=== PATIENT | female | born 1965 | race Caucasian/White ===

== ENCOUNTER 2021-03-20 10:54 | Inpatient (IN) | payer BC ==
[2021-03-20 13:23] VITALS: BMI 32.5
[2021-03-20] MEDS ORDERED: Aspirin 325 mg Enteric Coated Tablet PO SCH (14:45)
[2021-03-20] MEDS ORDERED: Communication Order-Pharmacy FS SCH (15:15)
[2021-03-20 15:38] LABS: Troponin I 0.352 ng/mL (< 0.028)
[2021-03-20] MEDS: Acetaminophen 325 MG TAB PO PRN (17:38)
[2021-03-20 19:04] LABS: Troponin I 0.471 ng/mL (< 0.028)
[2021-03-20] MEDS: Fioricet 325/50/40 mg Tablet PO PRN (19:57)
[2021-03-20] MEDS: Enoxaparin Sodium 100 MG/ML SYRINGE SC SCH (19:58)
[2021-03-20] MEDS: Losartan 25 MG TAB PO SCH (19:58)
[2021-03-20] MEDS ORDERED: Fioricet 325/50/40 mg Tablet PO PRN (20:34)
[2021-03-20] MEDS: Meloxicam 7.5 MG TAB PO SCH (20:40)
[2021-03-20] MEDS: clonazePAM 0.5 MG TAB PO SCH (20:40)
[2021-03-20] MEDS: cloNIDine 0.2 MG TAB PO SCH (20:40)
[2021-03-20 23:22] LABS: SARS-CoV-2 PCR by NAA Not Detected (NotDetected)
[2021-03-21] MEDS: Nitroglycerin 2% Ointment 1 INCH/1 GM Packet TOP SCH ×4 (01:27→20:19)
[2021-03-21 06:15] LABS: Anion Gap 11 mmol/L (10-20); BUN (Urea Nitrogen) 19 mg/dL (9.8-20.1); Calc. Creatinine Clearance 107 mL/min (70-130); Calcium 9.3 mg/dL (7.8-10.44); Carbon Dioxide 24 mmol/L (22-29); Cardiac Risk 5.6 (Less than 4.5); Chloride 106 mmol/L (98-107); Cholesterol 235 mg/dl (< 200 Desired); Glucose 95 mg/dL (70-105); HDL Cholesterol 42 mg/dL (>60 Neg Risk); LDL Cholesterol, Calculated 144 mg/dL; Potassium 4.1 mmol/L (3.5-5.1); Sodium 137 mmol/L (136-145); Triglycerides 243 mg/dL (Less than 150)
[2021-03-21 06:52] LABS: Mean Corpuscular Hemoglobin 31.2 pg (27.0-31.0); Mean Corpuscular Volume 89.1 fL (78.0-98.0); Mean Platelet Volume 7.9 fL (7.4-10.4); Platelet Count 218 thou/uL (130-400); RBC Distribution Width 11.9 % (11.5-14.5); Red Blood Cell (RBC) Count 4.17 mill/uL (4.20-5.40); White Blood Cell (WBC) Count 7.7 thou/uL (4.8-10.8)
[2021-03-21 07:35] LABS: Eosinophils 2 % (0-10); Lymphocytes 53 % (21-51); MDiff Complete? YES; Monocytes 3 % (0-10); Neutrophil 40 % (42-75); Platelet Morphology Comment Appears Adequate; RBC Morphology Normal; Reactive Lymphocytes 1 % (0-10)
[2021-03-21] MEDS ORDERED: Enoxaparin Sodium 40 MG/0.4 ML SYRINGE SC SCH (09:00)
[2021-03-21] MEDS: Aspirin 325 mg Enteric Coated Tablet PO SCH (10:19)
[2021-03-21] MEDS: Meloxicam 7.5 MG TAB PO SCH ×2 (10:19→20:17)
[2021-03-21] MEDS: Losartan 25 MG TAB PO SCH ×2 (10:20→20:19)
[2021-03-21] MEDS: Enoxaparin Sodium 100 MG/ML SYRINGE SC SCH ×2 (10:21→20:19)
[2021-03-21] MEDS: clonazePAM 0.5 MG TAB PO SCH (20:17)
[2021-03-21] MEDS: cloNIDine 0.2 MG TAB PO SCH (20:18)
[2021-03-22] MEDS: Nitroglycerin 2% Ointment 1 INCH/1 GM Packet TOP SCH ×3 (05:43→21:16)
[2021-03-22] MEDS ORDERED: Communication Order-Pharmacy FS SCH (07:30)
[2021-03-22] MEDS ORDERED: Sodium Chloride 0.9% 1,000 ML IV SCH (07:30)
[2021-03-22 07:56] LABS: Anion Gap 11 mmol/L (10-20); BUN (Urea Nitrogen) 19 mg/dL (9.8-20.1); Calc. Creatinine Clearance 108 mL/min (70-130); Calcium 9.5 mg/dL (7.8-10.44); Carbon Dioxide 27 mmol/L (22-29); Chloride 104 mmol/L (98-107); Glucose 97 mg/dL (70-105); Potassium 3.9 mmol/L (3.5-5.1); Sodium 138 mmol/L (136-145)
[2021-03-22] MEDS: Meloxicam 7.5 MG TAB PO SCH ×2 (09:11→21:05)
[2021-03-22] MEDS: Enoxaparin Sodium 100 MG/ML SYRINGE SC SCH ×2 (09:12→21:06)
[2021-03-22] MEDS: Aspirin 325 mg Enteric Coated Tablet PO SCH (09:12)
[2021-03-22] MEDS: Losartan 25 MG TAB PO SCH ×2 (09:12→21:04)
[2021-03-22] MEDS: Ondansetron ODT 4 MG TAB PO PRN (21:02)
[2021-03-22] MEDS: clonazePAM 0.5 MG TAB PO SCH (21:04)
[2021-03-22] MEDS: cloNIDine 0.2 MG TAB PO SCH (21:04)
[2021-03-23] MEDS ORDERED: Sodium Chloride 0.9% 1,000 ML IV SCH ×2 (00:01→06:00)
[2021-03-23] MEDS: Nitroglycerin 2% Ointment 1 INCH/1 GM Packet TOP SCH ×3 (05:41→19:41)
[2021-03-23 05:42] LABS: #Basophils 0.1 thou/uL (0.0-0.2); #Eosinphils 0.1 thou/uL (0.0-0.7); #Lymphocytes 3.4 thou/uL (1.20-3.40); #Monocytes 0.4 thou/uL (0.11-0.59); #Neutrophils 3.7 thou/uL (1.40-6.50); %Basophils 0.9 % (0.0-1.0); %Eosinophils 1.5 % (0.0-10.0); %Lymphocytes 44.5 % (21.0-51.0); %Monocytes 5.6 % (0.0-10.0); %Neutrophils 47.5 % (42.0-75.0); Hemoglobin 13.7 g/dL (12.0-16.0); Mean Corpuscular HGB CONC 34.2 g/dL (32.0-36.0); Mean Corpuscular Volume 90.6 fL (78.0-98.0); Mean Platelet Volume 7.6 fL (7.4-10.4); Platelet Count 218 thou/uL (130-400); RBC Distribution Width 11.9 % (11.5-14.5); White Blood Cell (WBC) Count 7.7 thou/uL (4.8-10.8)
[2021-03-23] MEDS: Losartan 25 MG TAB PO SCH ×2 (05:48→19:39)
[2021-03-23] MEDS: Meloxicam 7.5 MG TAB PO SCH (05:48)
[2021-03-23] MEDS: Aspirin 325 mg Enteric Coated Tablet PO SCH (05:48)
[2021-03-23 06:01] LABS: Anion Gap 12 mmol/L (10-20); BUN (Urea Nitrogen) 18 mg/dL (9.8-20.1); Calc. Creatinine Clearance 120 mL/min (70-130); Carbon Dioxide 24 mmol/L (22-29); Chloride 104 mmol/L (98-107); Glucose 97 mg/dL (70-105); Potassium 3.9 mmol/L (3.5-5.1); Sodium 136 mmol/L (136-145)
[2021-03-23] MEDS ORDERED: Lidocaine 1% (PF) 30 ML VIAL ONE (06:35)
[2021-03-23] MEDS ORDERED: Verapamil 5 MG/2 ML VIAL ONE (06:35)
[2021-03-23] MEDS ORDERED: Heparin 10,000 UNITS/ 10 ML VIAL ONE (06:35)
[2021-03-23] MEDS ORDERED: Nitroglycerin 100MG/250ML BOT 250 ML ONE (06:36)
[2021-03-23] MEDS ORDERED: Midazolam HCl 2 mg/2 ml Vial ONE (07:22)
[2021-03-23] MEDS ORDERED: Fentanyl 100 MCG/2 ML VIAL ONE (07:23)
[2021-03-23] MEDS ORDERED: Sodium Chloride 0.9% 200 ML IV PRN (08:25)
[2021-03-23] MEDS ORDERED: Nitroglycerin 0.4 MG TAB (25 Tab Bottle) SL PRN (08:25)
[2021-03-23] MEDS ORDERED: Sodium Chloride 0.9% 500 ML IV SCH (08:30)
[2021-03-23] MEDS: Acetaminophen 325 MG TAB PO PRN (10:56)
[2021-03-23] MEDS ORDERED: Fentanyl 100 MCG/2 ML VIAL SLOW IVP SCH ×2 (11:30→11:45)
[2021-03-23] MEDS ORDERED: Communication Order-Pharmacy FS PRN (17:20)
[2021-03-23] MEDS ORDERED: Diazepam 5 MG TAB PO PRN (17:20)
[2021-03-23] MEDS ORDERED: CEFAZOLIN 2 GM, Admixture Fee 1 EACH in Sodium Chloride 0.9% 100 ML IVPB SCH (18:30)
[2021-03-23] MEDS: Ondansetron ODT 4 MG TAB PO PRN (18:43)
[2021-03-23] MEDS ORDERED: Ondansetron PF 4 MG/2 ML Vial IVP PRN (18:50)
[2021-03-23] MEDS: Fioricet 325/50/40 mg Tablet PO PRN (19:36)
[2021-03-23] MEDS: Atorvastatin Calcium 40 MG TAB PO SCH (19:39)
[2021-03-23] MEDS: cloNIDine 0.2 MG TAB PO SCH (19:39)
[2021-03-23] MEDS: clonazePAM 0.5 MG TAB PO SCH (19:39)
[2021-03-23] MEDS ORDERED: Promethazine HCl 25 MG/ML VIAL IM SCH (20:30)
[2021-03-24] MEDS: Acetaminophen 325 MG TAB PO PRN (03:59)
[2021-03-24] MEDS: Fioricet 325/50/40 mg Tablet PO PRN (04:00)
[2021-03-24] MEDS: Nitroglycerin 2% Ointment 1 INCH/1 GM Packet TOP SCH ×3 (05:36→21:27)
[2021-03-24] MEDS ORDERED: Fioricet 325/50/40 mg Tablet PO PRN (09:21)
[2021-03-24] MEDS: Promethazine 25 MG TAB PO PRN ×2 (09:29→19:57)
[2021-03-24] MEDS: Losartan 25 MG TAB PO SCH ×2 (10:19→21:26)
[2021-03-24] MEDS: Aspirin 325 mg Enteric Coated Tablet PO SCH (10:19)
[2021-03-24] MEDS ORDERED: Mineral Oil ENEMA PR SCH (21:00)
[2021-03-24] MEDS ORDERED: Docusate 100 MG CAP PO SCH (21:00)
[2021-03-24] MEDS: cloNIDine 0.2 MG TAB PO SCH (21:25)
[2021-03-24] MEDS: clonazePAM 0.5 MG TAB PO SCH (21:26)
[2021-03-24] MEDS: Atorvastatin Calcium 40 MG TAB PO SCH (21:26)
[2021-03-25] MEDS: Losartan 25 MG TAB PO SCH (06:10)
[2021-03-25] MEDS: Nitroglycerin 2% Ointment 1 INCH/1 GM Packet TOP SCH (06:11)
[2021-03-25] MEDS ORDERED: Bupivacaine PF 0.5% 30 ML VIAL ONE (06:30)
[2021-03-25] MEDS ORDERED: Albumin 5% 500 ML ONE (06:30)
[2021-03-25] MEDS ORDERED: Dexamethasone 4 mg/ml Vial ONE (06:30)
[2021-03-25] MEDS ORDERED: EPINEPHrine 1 MG/ML AMP ONE (06:30)
[2021-03-25] MEDS ORDERED: Fentanyl 250 MCG/5 ML VIAL ONE (08:44)
[2021-03-25] MEDS ORDERED: Midazolam HCl 5 mg/5 ml Vial ONE (08:44)
[2021-03-25] MEDS ORDERED: Lidocaine 1% PF 5 ML VIAL ONE ×2 (08:52→09:09)
[2021-03-25] MEDS ORDERED: Thrombin 5000 UNITS/5 ML VIAL ONE (09:09)
[2021-03-25] MEDS ORDERED: Cardioplegic Soln 1,000 ML BAG ONE (09:09)
[2021-03-25] MEDS ORDERED: Protamine Sulfate 250 MG/25 ML VIAL ONE (09:09)
[2021-03-25] MEDS ORDERED: Calcium Chloride 1 GM/10 ML Abboject SYRINGE ONE (09:09)
[2021-03-25] MEDS ORDERED: Heparin 30,000 units/30 ml VIAL ONE (09:09)
[2021-03-25] MEDS ORDERED: Heparin 5,000 UNITS/ML VIAL ONE (09:09)
[2021-03-25] MEDS ORDERED: Papaverine 60 MG/2 ML VIAL ONE (09:09)
[2021-03-25] MEDS ORDERED: Lidocaine 2% PF 100 mg/5 ml Syringe ONE (09:09)
[2021-03-25] MEDS ORDERED: Magnesium Sulfate 1 GM/2 ML VIAL ONE (09:09)
[2021-03-25] MEDS ORDERED: PROPOFOL 200 MG/20 ML VIAL ONE (09:09)
[2021-03-25] MEDS ORDERED: Mannitol 12.5 GM/50 ML ONE (09:09)
[2021-03-25] MEDS ORDERED: Potassium Chloride 60 MEQ/30 ML VIAL ONE (09:09)
[2021-03-25] MEDS ORDERED: PHENYLEPHRINE-NS 100 MCG/ML 10 ML SYRINGE ONE ×2 (09:09→10:53)
[2021-03-25] MEDS ORDERED: Sodium Bicarb 50 MEQ/50 ML Abboject 8.4% SYRINGE ONE (09:09)
[2021-03-25] MEDS ORDERED: Rocuronium Bromide 10 MG/ML (10ML VIAL) ONE (09:09)
[2021-03-25] MEDS ORDERED: Aminocaproic Acid 5 GM/20 ML VIAL ONE (09:09)
[2021-03-25] MEDS ORDERED: niCARdipine 25 MG in Sodium Chloride 0.9% 250 ML 250 ML IVPB PRN (12:46)
[2021-03-25] MEDS ORDERED: Bisacodyl 5 MG TAB PO PRN (12:46)
[2021-03-25] MEDS ORDERED: traMADol HCl 50 MG TAB PO PRN ×2 (12:46)
[2021-03-25] MEDS ORDERED: Hetastarch 6% 500 ML 500 ML IVPB PRN (12:46)
[2021-03-25] MEDS ORDERED: Magnesium 2 GM/50 ML 2 GM in Premix Bag 1 BAG IVPB SCH (12:46)
[2021-03-25] MEDS ORDERED: Fentanyl 100 MCG/2 ML VIAL SLOW IVP PRN (12:46)
[2021-03-25] MEDS ORDERED: Promethazine HCl 25 MG/ML VIAL IM PRN (12:46)
[2021-03-25] MEDS ORDERED: Guaifenesin DM 100-10/5 ML UDCUP PO PRN (12:46)
[2021-03-25] MEDS ORDERED: Mag-Al 1200 mg/1200 mg/30 ML UDCUP PO PRN (12:46)
[2021-03-25] MEDS ORDERED: Acetaminophen 325 MG TAB PO PRN (12:46)
[2021-03-25] MEDS ORDERED: Bisacodyl 10 MG SUPP PR PRN (12:46)
[2021-03-25] MEDS ORDERED: Nitroglycerin 50 MG/250 ML BOT 250 ML IVPB PRN (12:46)
[2021-03-25] MEDS ORDERED: Norepinephrine 8 MG/0.9% NS 250 ML IVPB PRN (12:46)
[2021-03-25] MEDS ORDERED: HUMULIN R 100 UNITS in Sodium Chloride 0.9% 100 ML IVPB SCH (13:00)
[2021-03-25] MEDS ORDERED: Lantus 1000 UNITS/10 ML VIAL SC PRN (13:00)
[2021-03-25] MEDS ORDERED: Dextrose 5% in Water 1,000 ML IV PRN (13:00)
[2021-03-25] MEDS ORDERED: Dextrose 50% Abboject 50 ML SYRINGE SLOW IVP PRN (13:00)
[2021-03-25] MEDS ORDERED: Insulin Regular 300 UNITS/3 ML VIAL SC PRN (13:00)
[2021-03-25] MEDS ORDERED: Fentanyl 100 MCG/2 ML VIAL ONE ×2 (13:03)
[2021-03-25 13:11] LABS: Actual Bicarbonate (HCO3a) 22.1 mEq/L (22-28); Base Excess (BEa) -3.2 mEq/L (-2.0 to +3.0); CO2 Tension 40.6 mmHg (35.0-45.0); Calcium, Ionized (arterial) 1.15 mmol/L (1.12-1.30); Carboxyhemoglobin (COHb) 0.4 gm% (0.0-3.0); Hemoglobin (Hb) 11.2 g/dL (12.0-16.0); O2 Tension (PaO2), arterial 75.3 mmHg (80.0-100.0); Potassium - ABG Lab 3.55 mmol/L (3.70-5.30); pH, Arterial 7.35 (7.35-7.45)
[2021-03-25 13:12] LABS: Puncture Site Arterial Line
[2021-03-25 13:20] LABS: #Eosinphils 0.1 thou/uL (0.0-0.7); #Lymphocytes 2.8 thou/uL (1.20-3.40); #Monocytes 1.4 thou/uL (0.11-0.59); #Neutrophils 14.7 thou/uL (1.40-6.50); %Basophils 0.1 % (0.0-1.0); %Eosinophils 0.5 % (0.0-10.0); %Lymphocytes 14.6 % (21.0-51.0); %Monocytes 7.1 % (0.0-10.0); %Neutrophils 77.6 % (42.0-75.0); Hemoglobin 10.6 g/dL (12.0-16.0); Mean Corpuscular HGB CONC 33.2 g/dL (32.0-36.0); Mean Corpuscular Volume 93.4 fL (78.0-98.0); Mean Platelet Volume 7.4 fL (7.4-10.4); Platelet Count 137 thou/uL (130-400); RBC Distribution Width 12.1 % (11.5-14.5); Red Blood Cell (RBC) Count 3.44 mill/uL (4.20-5.40); White Blood Cell (WBC) Count 18.9 thou/uL (4.8-10.8)
[2021-03-25] MEDS: D5 1/2 NS w/20 mEq KCL 1,000 ML IV SCH (13:28)
[2021-03-25 13:31] LABS: INR-International Normal Ratio 1.3; Prothrombin Time 16.3 sec (12.0-14.7)
[2021-03-25 13:32] LABS: PTT 26.5 sec (22.9-36.1)
[2021-03-25 13:44] LABS: Anion Gap 12 mmol/L (10-20); BUN (Urea Nitrogen) 12 mg/dL (9.8-20.1); Calc. Creatinine Clearance 125 mL/min (70-130); Calcium 7.9 mg/dL (7.8-10.44); Carbon Dioxide 20 mmol/L (22-29); Chloride 111 mmol/L (98-107); Glucose 158 mg/dL (70-105); Potassium 3.6 mmol/L (3.5-5.1); Sodium 139 mmol/L (136-145)
[2021-03-25] MEDS: Potassium Chloride 20 MEQ/100 ML PREMIX BAG IVPB PRN (14:11)
[2021-03-25 14:17] LABS: Actual Bicarbonate (HCO3a) 21.8 mEq/L (22-28); Base Excess (BEa) -2.7 mEq/L (-2.0 to +3.0); CO2 Tension 36.7 mmHg (35.0-45.0); Calcium, Ionized (arterial) 1.12 mmol/L (1.12-1.30); Carboxyhemoglobin (COHb) 0.4 gm% (0.0-3.0); Hemoglobin (Hb) 12.1 g/dL (12.0-16.0); O2 Tension (PaO2), arterial 85.4 mmHg (80.0-100.0); Potassium - ABG Lab 3.56 mmol/L (3.70-5.30); Puncture Site Arterial Line; pH, Arterial 7.39 (7.35-7.45)
[2021-03-25 14:18] LABS: ALV-art Gradient 153.925 mmHg (0-20)
[2021-03-25] MEDS ORDERED: Albumin 5% 250 ML ONE (14:32)
[2021-03-25] MEDS: Ondansetron PF 4 MG/2 ML Vial IVP PRN (15:54)
[2021-03-25] MEDS: Fentanyl 100 MCG/2 ML VIAL SLOW IVP PRN ×2 (15:54→20:42)
[2021-03-25] MEDS: CEFAZOLIN 2 GM, Admixture Fee 1 EACH in Sodium Chloride 0.9% 100 ML IVPB SCH (15:55)
[2021-03-25] MEDS: Ketorolac Tromethamine 30 MG/ML VIAL IVP SCH (17:16)
[2021-03-25 18:14] LABS: Hemoglobin 10.5 g/dL (12.0-16.0)
[2021-03-25 18:51] LABS: Potassium 4.2 mmol/L (3.5-5.1)
[2021-03-25] MEDS: Atorvastatin Calcium 40 MG TAB PO SCH (20:00)
[2021-03-25] MEDS ORDERED: Famotidine/PF 20 mg/2ml Vial SLOW IVP SCH (21:00)
[2021-03-26] MEDS: Ketorolac Tromethamine 30 MG/ML VIAL IVP SCH ×4 (00:05→17:31)
[2021-03-26] MEDS: CEFAZOLIN 2 GM, Admixture Fee 1 EACH in Sodium Chloride 0.9% 100 ML IVPB SCH (00:05)
[2021-03-26 04:17] LABS: #Basophils 0.1 thou/uL (0.0-0.2); #Lymphocytes 2.1 thou/uL (1.20-3.40); #Monocytes 1.3 thou/uL (0.11-0.59); #Neutrophils 9.5 thou/uL (1.40-6.50); %Basophils 0.5 % (0.0-1.0); %Eosinophils 0.3 % (0.0-10.0); %Lymphocytes 16.4 % (21.0-51.0); %Monocytes 9.7 % (0.0-10.0); %Neutrophils 73.2 % (42.0-75.0); Hemoglobin 9.8 g/dL (12.0-16.0); Mean Corpuscular HGB CONC 33.4 g/dL (32.0-36.0); Mean Corpuscular Hemoglobin 31.1 pg (27.0-31.0); Mean Corpuscular Volume 93.1 fL (78.0-98.0); Mean Platelet Volume 7.7 fL (7.4-10.4); Platelet Count 171 thou/uL (130-400); RBC Distribution Width 12.3 % (11.5-14.5); Red Blood Cell (RBC) Count 3.14 mill/uL (4.20-5.40)
[2021-03-26 04:38] LABS: Anion Gap 9 mmol/L (10-20); BUN (Urea Nitrogen) 13 mg/dL (9.8-20.1); Calc. Creatinine Clearance 120 mL/min (70-130); Calcium 7.8 mg/dL (7.8-10.44); Carbon Dioxide 25 mmol/L (22-29); Chloride 106 mmol/L (98-107); Glucose 98 mg/dL (70-105); Potassium 3.8 mmol/L (3.5-5.1); Sodium 136 mmol/L (136-145)
[2021-03-26] MEDS ORDERED: Ketorolac Tromethamine 30 MG/ML VIAL ONE ×2 (06:16→11:22)
[2021-03-26] MEDS ORDERED: ceFAZolin Sodium/D5W 2 GM in Premix Bag 1 BAG IVPB SCH (08:00)
[2021-03-26] MEDS: Magnesium 2 GM/50 ML 2 GM in Premix Bag 1 BAG IVPB SCH (08:06)
[2021-03-26] MEDS: Aspirin 325 MG TAB PO SCH (08:08)
[2021-03-26] MEDS ORDERED: Potassium Chloride 20 MEQ/100 ML PREMIX BAG ONE (08:25)
[2021-03-26] MEDS: Potassium Chloride 20 MEQ/100 ML PREMIX BAG IVPB PRN (08:25)
[2021-03-26] MEDS: D5 1/2 NS w/20 mEq KCL 1,000 ML IV SCH (11:25)
[2021-03-26] MEDS: Fioricet 325/50/40 mg Tablet PO PRN ×2 (15:01→22:18)
[2021-03-26] MEDS: HYDROcodone/Acetaminophen 5/325 mg Tablet PO PRN ×2 (15:47→20:11)
[2021-03-26] MEDS: Atorvastatin Calcium 40 MG TAB PO SCH (20:54)
[2021-03-26] MEDS ORDERED: Metoprolol Tartrate 25 MG TAB PO SCH (21:00)
[2021-03-27] MEDS: Ketorolac Tromethamine 30 MG/ML VIAL IVP SCH ×5 (00:19→23:42)
[2021-03-27] MEDS: HYDROcodone/Acetaminophen 5/325 mg Tablet PO PRN ×3 (03:35→14:22)
[2021-03-27] MEDS ORDERED: Guaifenesin DM 100-10/5 ML UDCUP PO PRN (07:38)
[2021-03-27] MEDS ORDERED: Milk Of Magnesia 30 ML UDCUP PO PRN (07:38)
[2021-03-27] MEDS ORDERED: Zolpidem Tartrate 5 MG TAB PO PRN (07:38)
[2021-03-27] MEDS ORDERED: Mineral Oil ENEMA PR PRN (07:38)
[2021-03-27] MEDS ORDERED: Bisacodyl 10 MG SUPP PR PRN (07:38)
[2021-03-27] MEDS ORDERED: Mag-Al 1200 mg/1200 mg/30 ML UDCUP PO PRN (07:38)
[2021-03-27] MEDS ORDERED: Bisacodyl 5 MG TAB PO PRN (07:38)
[2021-03-27] MEDS ORDERED: Nitroglycerin 0.4 MG TAB (25 Tab Bottle) SL PRN (07:38)
[2021-03-27] MEDS: Magnesium 2 GM/50 ML 2 GM in Premix Bag 1 BAG IVPB SCH (09:04)
[2021-03-27] MEDS: Furosemide 40 MG TAB PO SCH (09:04)
[2021-03-27] MEDS: Potassium Chloride 10 MEQ TAB PO SCH (09:04)
[2021-03-27] MEDS: Aspirin 325 MG TAB PO SCH (09:04)
[2021-03-27] MEDS: Metoprolol Tartrate 25 MG TAB PO SCH ×2 (09:04→21:09)
[2021-03-27] MEDS: Ondansetron PF 4 MG/2 ML Vial IVP PRN (09:14)
[2021-03-27] MEDS: Fioricet 325/50/40 mg Tablet PO PRN ×2 (12:53→20:04)
[2021-03-27] MEDS: Atorvastatin Calcium 40 MG TAB PO SCH (21:09)
[2021-03-28] MEDS: HYDROcodone/Acetaminophen 5/325 mg Tablet PO PRN ×4 (03:01→21:20)
[2021-03-28] MEDS: Ketorolac Tromethamine 30 MG/ML VIAL IVP SCH ×3 (05:30→16:52)
[2021-03-28] MEDS: Aspirin 325 MG TAB PO SCH (09:13)
[2021-03-28] MEDS: Potassium Chloride 10 MEQ TAB PO SCH (09:13)
[2021-03-28] MEDS: Furosemide 40 MG TAB PO SCH (09:14)
[2021-03-28] MEDS: Metoprolol Tartrate 25 MG TAB PO SCH ×2 (09:14→21:15)
[2021-03-28] MEDS ORDERED: Furosemide 40 MG/4 ML VIAL SLOW IVP SCH (09:30)
[2021-03-28] MEDS: Atorvastatin Calcium 40 MG TAB PO SCH (21:15)
[2021-03-29] MEDS: HYDROcodone/Acetaminophen 5/325 mg Tablet PO PRN ×5 (01:06→22:28)
[2021-03-29] MEDS: Aspirin 325 MG TAB PO SCH (09:06)
[2021-03-29] MEDS: Metoprolol Tartrate 25 MG TAB PO SCH ×2 (09:06→21:12)
[2021-03-29] MEDS: Furosemide 40 MG TAB PO SCH (09:07)
[2021-03-29] MEDS: Potassium Chloride 10 MEQ TAB PO SCH (09:07)
[2021-03-29] MEDS ORDERED: Furosemide 20 MG/2 ML VIAL SLOW IVP SCH (11:00)
[2021-03-29 14:08] LABS: SARS-CoV-2 PCR by NAA Not Detected (NotDetected)
[2021-03-29] MEDS: Fioricet 325/50/40 mg Tablet PO PRN ×2 (14:40→18:34)
[2021-03-29] MEDS: Atorvastatin Calcium 40 MG TAB PO SCH (21:12)
[2021-03-29] MEDS: diphenhydrAMINE 25 MG CAP PO PRN ×2 (21:19)
[2021-03-30] MEDS: HYDROcodone/Acetaminophen 5/325 mg Tablet PO PRN ×4 (04:37→20:51)
[2021-03-30] MEDS ORDERED: Metoprolol Tartrate 25 MG TAB PO SCH (05:45)
[2021-03-30] MEDS: Potassium Chloride 10 MEQ TAB PO SCH (08:57)
[2021-03-30] MEDS: Furosemide 40 MG TAB PO SCH (08:58)
[2021-03-30] MEDS: Aspirin 325 MG TAB PO SCH (08:58)
[2021-03-30] MEDS ORDERED: Losartan 25 MG TAB PO SCH ×3 (09:00→12:30)
[2021-03-30] MEDS: Atorvastatin Calcium 40 MG TAB PO SCH (20:59)
[2021-03-30] MEDS: Losartan 25 MG TAB PO SCH (20:59)
[2021-03-30] MEDS: Metoprolol Tartrate 25 MG TAB PO SCH (20:59)
[2021-03-31] MEDS: HYDROcodone/Acetaminophen 5/325 mg Tablet PO PRN (05:09)
[2021-03-31] MEDS: Losartan 25 MG TAB PO SCH (08:48)
[2021-03-31] MEDS: Aspirin 325 MG TAB PO SCH (08:48)
[2021-03-31] MEDS: Furosemide 40 MG TAB PO SCH (08:48)
[2021-03-31] MEDS: Metoprolol Tartrate 25 MG TAB PO SCH (08:48)
[2021-03-31] MEDS: Potassium Chloride 10 MEQ TAB PO SCH (08:49)
[2021-03-31 11:12] VITALS: TEMP 97.5
[2021-03-31 12:27] VITALS: BP 124/73
== END 2021-03-31 13:15 | disposition home or self-care (01) | DRG 234 ==
LOC: 2SW 13:19 → OBSVTOIN 03-21 18:09 → CCU 03-25 09:55 → 2NO 03-27 20:11
PROVIDERS: ADMIT Internal Medicine; ATTEND Internal Medicine
PROC: 4A023N7 Measurement of Cardiac Sampling and Pressure, Left Heart, Percutaneous Approach (ICD-10-PCS; principal; 2021-03-23)
PROC: B2151ZZ Fluoroscopy of Left Heart using Low Osmolar Contrast (ICD-10-PCS; 2021-03-23)
PROC: B2111ZZ Fluoroscopy of Multiple Coronary Arteries using Low Osmolar Contrast (ICD-10-PCS; 2021-03-23)
PROC: 02100Z9 Bypass Coronary Artery, One Artery from Left Internal Mammary, Open Approach (ICD-10-PCS; 2021-03-25)
PROC: 0212093 Bypass Coronary Artery, Three Arteries from Coronary Artery with Autologous Venous Tissue, Open Approach (ICD-10-PCS; 2021-03-25)
PROC: 06BQ4ZZ Excision of Left Saphenous Vein, Percutaneous Endoscopic Approach (ICD-10-PCS; 2021-03-25)
PROC: 5A1221Z Performance of Cardiac Output, Continuous (ICD-10-PCS; 2021-03-25)
DX: I21.4 Non-ST elevation (NSTEMI) myocardial infarction (principal); I97.630 Postprocedural hematoma of a circulatory system organ or structure following a cardiac catheterization; Z20.822 Contact with and (suspected) exposure to COVID-19; I10 Essential (primary) hypertension; K21.9 Gastro-esophageal reflux disease without esophagitis; G43.909 Migraine, unspecified, not intractable, without status migrainosus; K58.9 Irritable bowel syndrome, unspecified; E66.9 Obesity, unspecified; E78.2 Mixed hyperlipidemia; Z88.5 Allergy status to narcotic agent; Z91.048 Other nonmedicinal substance allergy status; Z79.899 Other long term (current) drug therapy; Z90.49 Acquired absence of other specified parts of digestive tract; Z68.31 Body mass index [BMI] 31.0-31.9, adult; Y83.8 Other surgical procedures as the cause of abnormal reaction of the patient, or of later complication, without mention of misadventure at the time of the procedure
CPT/HCPCS: 36415; 36416; 71045; 80048; 80061; 82805; 85025; 85610; 85730; 86850; 86900; 86901; 93005; 93010; 93306; 93458; 93798; 93976; 94002; 94150; 96372; 97139; 99152; 99153; C1776; G0378; J0171; J0690; J1100; J1642; J1644; J1650; J1815; J1885; J1940; J2001; J2150; J2250; J2405; J2440; J2550; J2704; J2720; J3010; J3370; J3475; J3480; J3490; J7030; J7050; P9045; Q0162; Q0169; S0017; S0020; S0028; U0003; U0005